=== PATIENT | male | born 1935 | race Caucasian/White ===

== ENCOUNTER → 2017-01-18 | Outpatient (CLI) | payer MEDICARE, OTHER ==
[~2017-01-18] MED LIST: ALBU6.7H INH; AMIO200T PO; ASPI-496 PO; BUDE10.2 INH; BUSP5TAB2 PO; CARV6.2512 PO; CELE200C PO; DOCU240C53 PO; FEXO180T5 PO; FLUT1DIS IH; IRON150C3 PO; MULT-257 PO; MULT-658 PO; PANT40TA5 PO; POTA20TA37 PO; RIVA20TA PO; ROSU10TA PO; TIOT18CA INH
== END | disposition home or self-care (01) ==
LOC: CFH 10:47
PROVIDERS: ATTEND Internal Medicine Cardiovascular Disease
DX: I08.3 Combined rheumatic disorders of mitral, aortic and tricuspid valves (principal); I48.91 Unspecified atrial fibrillation; I10 Essential (primary) hypertension; Z95.1 Presence of aortocoronary bypass graft
CPT/HCPCS: 93306

== ENCOUNTER 2018-10-27 12:26 | Inpatient (IN) | payer MEDICARE, OTHER ==
[~2018-10-27] VITALS: Ht 182.9 cm; Wt 74.0 kg
[~2018-10-27 12:26] MED LIST changes: +ATOR20TA37 PO; +CARV3.122 PO; +CETI10CA PO; +CLOP75TA52 PO; +CYAN100072 PO; +DIGO125T PO; +DIGO125T81 PO; +FEXO180T15 PO; -FEXO180T5 PO; +FURO-92 PO; +LISI5TAB7 PO; +MONT10TA9 PO; +PNV1TABL PO; +POTA10CA PO; -ROSU10TA PO; +ROSU10TA2 PO
--- NOTE | 2018-10-27 12:40 | NUR ---
PT BIB [facility], TRANSFER FROM [facility] IN [place]. PT WENT TO ED AT 6AM THIS MORNING FOR CHEST DISCOMFORT, WORSENING FROM YESTERDAY. 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 PT'S EKG SHOWED OLD ST DEPRESSION & AFIB. TROPONIN WAS INITIALLY 0.17, THEN INCREASED TO .024. PT WAS TREATED WITH 162MG ASA, 0.4MG NITRO, 300MG PLAVIX, HEPARIN BOLUS 4000 UNITS, ATIVAN 0.5MG, AND HEPARIN GTT AT 950 UNITS/HR. PT ARRIVES TO ED A&OX4, IN GOOD SPIRITS. DENIES ANY CHEST PAIN/DISCOMFORT AT THIS TIME. GRANDDAUGHTERS AT BS. ERP AT BS IMMEDIATELY AND EKG DONE BY ASSIST RN. POC RV'WD WITH PT AND FAMILY.
--- NOTE | 2018-10-27 12:42 | NUR ---
TASK RN NOTE: EKG TAKEN BY THIS RN, REVIEWED BY ALEXSANDRA RODRIGUES.
[2018-10-27] MEDS ORDERED: HEPARIN 25,000 UNITS/500ML PMX 500 ML ONE (12:52)
[2018-10-27] MEDS: HEPARIN 25,000 UNITS/500ML PMX 500 ML IV PRN (12:56)
--- NOTE | 2018-10-27 12:56 | NUR ---
HEPARIN GTT RESTARTED PER PHARMACY PROTOCOL.
[2018-10-27] MEDS ORDERED: DO NOT GIVE XX ONE (13:00)
[2018-10-27 13:09] LABS: INTERNATIONAL NORMALIZED RATIO 1.05 (0.93-1.1)
--- NOTE | 2018-10-27 13:30 | NUR ---
task RN note: pharmacy called to notify of baseline heparin xa level 0.23 level after initiating heparin gtt at 900U/hr. pharmacy notified pt was started on heparin gtt this am prior to arrival, unknown start time (not in documentation that arrived with patient). Per pharmacist Edgardo, pt is to be continued on heparin gtt at 900U/hr and have repeat heparin xa drawn 6 hrs from start time at [facility]. Heparin xa level ordered for 1900 per pharmacy, primary RN Yue notified.
[2018-10-27 13:31] LABS: TROPONIN I 0.536 ng/mL (0.000-0.045)
--- NOTE | 2018-10-27 13:50 | NUR ---
PT PROVIDED WITH WATER PER ERP. GRANDDAUGHTER REMAINS AT BS. UPDATED PT ON POC, WILL BE NPO AFTER MN.
--- NOTE | 2018-10-27 14:24 | NUR ---
SPO2 92% ON RA; PT PLACED ON 2L O2 NC. REPORTED TO CREDIT VERIFIER. PT AMBULATED TO BR WITH STAND BY ASSIST WITHOUT DIFFICULTY.
--- NOTE | 2018-10-27 14:31 | NUR ---
HOSPITALIST AT BS.
[2018-10-27 15:30] VITALS: BP 153/86
[2018-10-27] MEDS ORDERED: ONDANSETRON ODT 4 MG PO PRN (16:00)
[2018-10-27] MEDS ORDERED: NITROGLYCERIN 0.4 MG BOTTLE (25 TABS) SL PRN (16:00)
[2018-10-27] MEDS ORDERED: GUAIFENESIN/DM 200-20MG, 10ML UDC PO PRN (16:00)
[2018-10-27] MEDS ORDERED: ALBUTEROL SULFATE 2.5 MG/3 ML NPPB PRN (16:00)
[2018-10-27] MEDS ORDERED: DOCUSATE 100 MG CAPSULE PO PRN (16:00)
[2018-10-27] MEDS ORDERED: hydrALAzine 20 MG/ML, 1ML IVPush PRN (16:00)
[2018-10-27] MEDS ORDERED: TEMPLATE NON-FORMULARY MED. (Budesonide/Formoterol Fumarate (Symbicort 160-4.5 Mcg Inhaler INH SCH (16:00)
[2018-10-27] MEDS ORDERED: ACETAMINOPHEN 325 MG TABLET PO PRN (16:00)
[2018-10-27] MEDS ORDERED: POLYETHYLENE GLYCOL 17 GM PACKET PO PRN (16:00)
[2018-10-27] MEDS ORDERED: NITROGLYCERIN 0.4 MG/SPRAY SL PRN (16:00)
[2018-10-27] MEDS ORDERED: LIDODERM 5% PATCH TD PRN (16:00)
[2018-10-27] MEDS ORDERED: ALBUTEROL SULFATE 2.5MG/0.5ML NPPB SCH (16:30)
[2018-10-27 16:55] LABS: BASOPHILS % (AUTO) 0 % (0-1); EOSINOPHILS # (AUTO) 0.12 x10^3/uL (0-0.4); EOSINOPHILS % (AUTO) 2 % (1-7); LYMPHOCYTES # (AUTO) 0.66 x10^3/uL (1-3.4); LYMPHOCYTES % (AUTO) 12 % (22-44); MD NO; MEAN CORPUSCULAR HEMOGLOBIN 33.4 pg (27.5-34.5); MEAN CORPUSCULAR HGB CONC 33.8 g/dL (33.2-36.2); MEAN CORPUSCULAR VOLUME 98.8 fL (81-97); MEAN PLATELET VOLUME 6.1 fL (7.4-10.4); MONOCYTES # (AUTO) 0.37 x10^3/uL (0.2-0.8); MONOCYTES % (AUTO) 7 % (2-9); NEUTROPHILS # (AUTO) 4.21 x10^3/uL (1.8-6.8); NEUTROPHILS % (AUTO) 79 % (42-75); PLATELET COUNT 282 x10^3/uL (130-400); RED CELL DISTRIBUTION WIDTH 13.8 % (9.4-14.8)
[2018-10-27 17:08] LABS: ALANINE AMINOTRANSFERASE 22 U/L (12-78); ALBUMIN 3.7 g/dL (3.4-5.0); ANION GAP 7 mmol/L (5-15); CALCIUM 8.9 mg/dL (8.5-10.1); CHLORIDE 108 mmol/L (98-107)
[2018-10-27 17:18] LABS: ALKALINE PHOSPHATASE 57 U/L (45-117); BILIRUBIN,TOTAL 0.7 mg/dL (0.2-1.0); FREE T4 (FREE THYROXINE) 0.97 ng/dL (0.76-1.46); TOTAL PROTEIN 6.9 g/dL (6.4-8.2)
[2018-10-27 19:05] LABS: MICROSCOPIC NOT IND
[2018-10-27 19:10] LABS: CULTURE INDICATED? NO
[2018-10-27] MEDS: HEPARIN 5,000 UNITS/ML, 1ML IV PRN (19:30)
[2018-10-27 19:33] VITALS: BP 135/65
[2018-10-27] MEDS: BUDESONIDE 0.5 MG/2 ML INHA INH SCH (21:07)
[2018-10-27] MEDS: ALBUTEROL/IPRATROPIUM 2.5MG/0.5MG, 3 ML HHN SCH (21:07)
[2018-10-27 21:55] VITALS: BP 119/69
[2018-10-27] MEDS: CARVEDILOL 6.25 MG TABLET PO SCH (21:56)
[2018-10-27] MEDS: MONTELUKAST 10 MG TABLET PO SCH (21:56)
[2018-10-27] MEDS: ATORVASTATIN 20 MG TABLET PO SCH (21:56)
[2018-10-27] MEDS: SODIUM CHLORIDE 0.9% 1,000 ML IV SCH (23:38)
[2018-10-28 00:36] VITALS: BP_SYST 113; BP_SYST 126; BP_DIAS 70; BP_DIAS 75
[2018-10-28 02:03] LABS: BASOPHILS # (AUTO) 0.01 x10^3/uL (0-0.1); BASOPHILS % (AUTO) 0 % (0-1); EOSINOPHILS # (AUTO) 0.14 x10^3/uL (0-0.4); EOSINOPHILS % (AUTO) 3 % (1-7); LYMPHOCYTES # (AUTO) 0.58 x10^3/uL (1-3.4); LYMPHOCYTES % (AUTO) 11 % (22-44); MD NO; MEAN CORPUSCULAR HEMOGLOBIN 33.6 pg (27.5-34.5); MEAN CORPUSCULAR HGB CONC 34.2 g/dL (33.2-36.2); MEAN CORPUSCULAR VOLUME 98.4 fL (81-97); MEAN PLATELET VOLUME 6.1 fL (7.4-10.4); MONOCYTES # (AUTO) 0.51 x10^3/uL (0.2-0.8); MONOCYTES % (AUTO) 9 % (2-9); NEUTROPHILS # (AUTO) 4.18 x10^3/uL (1.8-6.8); NEUTROPHILS % (AUTO) 77 % (42-75); PLATELET COUNT 264 x10^3/uL (130-400); RED BLOOD COUNT 3.74 x10^6/uL (4.38-5.82); RED CELL DISTRIBUTION WIDTH 13.4 % (9.4-14.8)
[2018-10-28 02:13] LABS: ANION GAP 6 mmol/L (5-15); CALCIUM 8.6 mg/dL (8.5-10.1); CHLORIDE 112 mmol/L (98-107); CREATININE 1.11 mg/dL (0.7-1.3); INTERNATIONAL NORMALIZED RATIO 1.07 (0.93-1.1); PROTHROMBIN TIME 11.2 Seconds (9.6-11.5)
[2018-10-28] MEDS: HEPARIN 5,000 UNITS/ML, 1ML IV PRN (02:35)
[2018-10-28] MEDS: ALBUTEROL/IPRATROPIUM 2.5MG/0.5MG, 3 ML HHN SCH ×4 (03:55→20:58)
[2018-10-28 06:08] VITALS: BP 129/81
[2018-10-28 07:20] VITALS: BP 144/89
[2018-10-28] MEDS ORDERED: IPRATROPIUM 0.5 MG/2.5 ML INHA NPPB SCH (09:00)
[2018-10-28] MEDS: BUDESONIDE 0.5 MG/2 ML INHA INH SCH ×2 (09:31→20:58)
[2018-10-28] MEDS: MULTIVITAMIN 1 TABLET PO SCH (09:51)
[2018-10-28] MEDS: POTASSIUM CHLORIDE 10 MEQ TABLET.ER PO SCH (09:51)
[2018-10-28] MEDS: ASPIRIN 81 MG TABLET EC PO SCH (09:51)
[2018-10-28] MEDS: CYANOCOBALAMIN 1,000 MCG TABLET PO SCH (09:51)
[2018-10-28] MEDS: LISINOPRIL 5 MG TABLET PO SCH (09:52)
[2018-10-28] MEDS: CARVEDILOL 6.25 MG TABLET PO SCH ×2 (09:52→20:51)
[2018-10-28] MEDS: DIGOXIN 0.125 MG TABLET PO SCH (09:52)
[2018-10-28] MEDS: CETIRIZINE 10 MG TABLET PO SCH (09:53)
[2018-10-28] MEDS: FUROSEMIDE 40 MG TABLET PO SCH (09:53)
[2018-10-28] MEDS ORDERED: SODIUM CHLORIDE 0.9% 1,000 ML IV SCH ×2 (11:00→16:54)
[2018-10-28] MEDS: HEPARIN 25,000 UNITS/500ML PMX 500 ML IV PRN (11:47)
[2018-10-28] MEDS: SODIUM CHLORIDE 0.9% 1,000 ML IV SCH (13:20)
[2018-10-28 13:37] VITALS: BP 116/69
[2018-10-28] MEDS ORDERED: FENTANYL PF 100 MCG/2ML ONE (14:34)
[2018-10-28] MEDS ORDERED: VERAPAMIL 2.5 MG/ML, 2ML ONE (14:34)
[2018-10-28] MEDS ORDERED: BIVALIRUDIN 250 MG ONE (14:34)
[2018-10-28] MEDS ORDERED: TICAGRELOR 90 MG TABLET ONE (14:34)
[2018-10-28] MEDS ORDERED: MIDAZOLAM 1 MG/ML, 5ML ONE (14:34)
[2018-10-28] MEDS ORDERED: LIDOCAINE 2%, 20ML ONE (14:35)
[2018-10-28] MEDS ORDERED: HEPARIN 1,000 UNITS/ML, 10ML ONE (14:35)
[2018-10-28 19:29] VITALS: BP 129/79
[2018-10-28] MEDS: ATORVASTATIN 20 MG TABLET PO SCH (20:51)
[2018-10-28] MEDS: MONTELUKAST 10 MG TABLET PO SCH (20:51)
[2018-10-28] MEDS ORDERED: TICAGRELOR 90 MG TABLET PO ONE (21:00)
[2018-10-29 01:53] VITALS: BP 104/56
[2018-10-29] MEDS: ALBUTEROL/IPRATROPIUM 2.5MG/0.5MG, 3 ML HHN SCH ×3 (02:39→14:20)
[2018-10-29 04:36] LABS: ANION GAP 6 mmol/L (5-15); CALCIUM 8.8 mg/dL (8.5-10.1); CHLORIDE 109 mmol/L (98-107); CREATININE 1.06 mg/dL (0.7-1.3)
[2018-10-29 07:18] VITALS: BP 128/66
[2018-10-29] MEDS: BUDESONIDE 0.5 MG/2 ML INHA INH SCH (07:57)
[2018-10-29] MEDS ORDERED: CLOPIDOGREL 75 MG TABLET PO SCH (09:00)
[2018-10-29] MEDS ORDERED: ASPIRIN 81 MG TABLET EC PO SCH (09:00)
[2018-10-29] MEDS: POTASSIUM CHLORIDE 10 MEQ TABLET.ER PO SCH (09:10)
[2018-10-29] MEDS: CARVEDILOL 6.25 MG TABLET PO SCH (09:11)
[2018-10-29] MEDS: FUROSEMIDE 40 MG TABLET PO SCH (09:11)
[2018-10-29] MEDS: DIGOXIN 0.125 MG TABLET PO SCH (09:11)
[2018-10-29] MEDS: MULTIVITAMIN 1 TABLET PO SCH (09:11)
[2018-10-29] MEDS: CYANOCOBALAMIN 1,000 MCG TABLET PO SCH (09:11)
[2018-10-29] MEDS: ASPIRIN 81 MG TABLET EC PO SCH (09:11)
[2018-10-29] MEDS: CETIRIZINE 10 MG TABLET PO SCH (09:11)
[2018-10-29] MEDS: LISINOPRIL 5 MG TABLET PO SCH (09:11)
[2018-10-29 13:18] VITALS: BP 105/65
[2018-10-29] MEDS ORDERED: CLOP75TA52 PO (14:56)
[2018-10-29] MEDS ORDERED: NITR0.4T SL (14:56)
[2018-10-29] MEDS ORDERED: ASPI-496 PO (14:56)
== END 2018-10-29 16:10 | disposition home or self-care (01) | DRG 246 ==
LOC: ED 13:16 → EDIP 13:27 → 5SO 14:59 → DCLOUNGE 10-29 15:55
PROVIDERS: ADMIT Internal Medicine; ATTEND Internal Medicine
PROC: 027034Z Dilation of Coronary Artery, One Artery with Drug-eluting Intraluminal Device, Percutaneous Approach (ICD-10-PCS; principal; 2018-10-27)
PROC: 4A023N7 Measurement of Cardiac Sampling and Pressure, Left Heart, Percutaneous Approach (ICD-10-PCS; 2018-10-27)
PROC: B2111ZZ Fluoroscopy of Multiple Coronary Arteries using Low Osmolar Contrast (ICD-10-PCS; 2018-10-27)
PROC: B2151ZZ Fluoroscopy of Left Heart using Low Osmolar Contrast (ICD-10-PCS; 2018-10-27)
PROC: B2121ZZ Fluoroscopy of Single Coronary Artery Bypass Graft using Low Osmolar Contrast (ICD-10-PCS; 2018-10-27)
DX: T82.855A Stenosis of coronary artery stent, initial encounter (principal); I21.4 Non-ST elevation (NSTEMI) myocardial infarction; I50.22 Chronic systolic (congestive) heart failure; D68.69 Other thrombophilia; I25.5 Ischemic cardiomyopathy; I48.2 Chronic atrial fibrillation; I25.118 Atherosclerotic heart disease of native coronary artery with other forms of angina pectoris; I11.0 Hypertensive heart disease with heart failure; I35.0 Nonrheumatic aortic (valve) stenosis; G47.30 Sleep apnea, unspecified; D63.8 Anemia in other chronic diseases classified elsewhere; E78.00 Pure hypercholesterolemia, unspecified; Y83.1 Surgical operation with implant of artificial internal device as the cause of abnormal reaction of the patient, or of later complication, without mention of misadventure at the time of the procedure; Z95.1 Presence of aortocoronary bypass graft; Z95.5 Presence of coronary angioplasty implant and graft; I25.2 Old myocardial infarction; Z87.891 Personal history of nicotine dependence
CPT/HCPCS: 36415; 80048; 80053; 80162; 81003; 83735; 83880; 84439; 84443; 84484; 85025; 85520; 85610; 93005; 93306; 93454; 94640; 99156; 99157; 99285; C1760; C1769; C1894; C9604; G0378; J0583; J1644; J2250; J3010; J7620; J7626; C1725; C1874; C1887; J7030; Q9967

== ENCOUNTER → 2020-09-06 | Outpatient (CLI) | payer MEDICARE, OTHER ==
[~2020-09-06] MED LIST changes: -ALBU6.7H INH; +ALBU6.7H8 INH; -DIGO125T PO; +DIGO125T85 PO; +MONT10TA17 PO; -MONT10TA9 PO; +NITR0.4T41 SL; -PANT40TA5 PO; +PANT40TA6 PO
== END | disposition home or self-care (01) ==
LOC: CVU 14:21 → EDSTATUS 15:00
PROVIDERS: ATTEND Internal Medicine Cardiovascular Disease
DX: I08.8 Other rheumatic multiple valve diseases (principal)
CPT/HCPCS: 93306